=== PATIENT | female | born 1970 | race Caucasian/White ===

== ENCOUNTER → 2020-11-07 | Day surgery (SDC) | payer MEDICARE ==
[~2020-11-07] MED LIST: CRESTOR10 MG PO; FENTANYL CITRATE/PF 100MCG/2 ML INJ ONE; FISH OIL 1,0001 EAC2 PO; HYOSCYAMINE SULFATE 0.5 MG/ML INJ ONE; MIDAZOLAM HCL 2 MG/2 ML VIAL ONE; MORPHINE PUMP; NAPROXEN250 MG PO; NEXIUM40 MG PO; PROMETHAZINE HC25 M1 PO; PROMETHAZINE HCL (IM) 25 MG/ML VIAL IM ONE; PROPOFOL IV EMULSION 10 MG/ML 20 ML VIAL ONE; ZANTAC150 MG PO
[2020-11-07 16:08] VITALS: BP 165/95
== END | disposition home or self-care (01) ==
LOC: OR 12:00
PROVIDERS: ATTEND Internal Medicine Gastroenterology
DX: K29.70 Gastritis, unspecified, without bleeding (principal); K31.7 Polyp of stomach and duodenum; Z86.010 Personal history of colon polyps; K20.90 Esophagitis, unspecified without bleeding; K22.8 Other specified diseases of esophagus; D72.820 Lymphocytosis (symptomatic); K59.00 Constipation, unspecified; K64.8 Other hemorrhoids; E78.5 Hyperlipidemia, unspecified; J45.909 Unspecified asthma, uncomplicated; Z01.812 Encounter for preprocedural laboratory examination; Z20.822 Contact with and (suspected) exposure to COVID-19; Z87.891 Personal history of nicotine dependence
CPT/HCPCS: 43239; 45378; J1980; J2250; J2550; J2704; J3010; U0002